=== PATIENT | female | born 1995 | race Caucasian/White ===

== ENCOUNTER 2020-03-12 09:36 | Emergency (ER) | payer OTHER ==
[2020-03-12 09:46] VITALS: TEMP 98
[2020-03-12] MEDS ORDERED: CYCLOBENZAPRINE 10MG STARTER 3 TAB BTL PO STA (10:05)
[2020-03-12] MEDS ORDERED: KETOROLAC 60 MG/2 ML VIAL IM STA (10:05)
--- NOTE | 2020-03-12 10:06 | ED ---
ENT HPI - General Source: patient Mode of arrival: ambulatory Limitations: no limitations <Allyson Alcazar - Last Filed: 03/12/20 10:41> <Karina Garcia - Last Filed: 03/13/20 15:53> - General Chief complaint: ENT Stated complaint: Ear pain, lower back pain Time Seen by Provider: 03/12/20 09:49 - History of Present Illness Initial comments: 24-year-old male presented for chief complaint of right ear pain, and low back pain (separate complaints). Patient states that she has had a sharp pain in her ear for the past week she states has been worsening denies any fever cough congestion or other respiratory upper respiratory symptoms. Patient denies any ringing in the ear tinnitus dizziness or hearing loss. Patient denies any swelling of the external ear. Patient denies diabetes. 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 She states that her low back pain. Patient states band like across the lower back no radiation. No direct trauma or falls. Patient denies loss of bowel/bladder control she denies any loss of sensation or weakness of the LE. patient denies fevers, IVDU. Denies urinary symptoms or hematuria. Remaining ROS (-). (Allyson Alcazar) - Related Data Previous Rx's Medication Instructions Recorded Amoxicillin 875 mg PO Q12HR 7 Days #14 tab 03/12/20 Allergies Allergy/AdvReac Type Severity Reaction Status Date / Time No Known Allergies Allergy Verified 03/12/20 09:43 Review of Systems ROS Other: All systems not noted in ROS Statement are negative. <Allyson Alcazar - Last Filed: 03/12/20 10:41> ROS Other: All systems not noted in ROS Statement are negative. <Karina Garcia - Last Filed: 03/13/20 15:53> ROS Statement: Those systems with pertinent positive or pertinent negative responses have been documented in the HPI. Past Medical History Past Medical History: No Reported History History of Any Multi-Drug Resistant Organisms: None Reported Past Surgical History: No Surgical Hx Reported Past Psychological History: No Psychological Hx Reported Smoking Status: Current every day smoker Past Alcohol Use History: Occasional Past Drug Use History: Marijuana <Allyson Alcazar - Last Filed: 03/12/20 10:41> General Exam Limitations: no limitations <Allyson Alcazar - Last Filed: 03/12/20 10:41> - General Exam Comments Initial Comments: General: The patient is awake and alert, in no distress, and does not appear acutely ill. Eye: Pupils are equal, round and reactive to light, extra-ocular movements are intact. No nystagmus. There is normal conjunctiva bilaterally. No signs of icterus. Ears, nose, mouth and throat: There are moist mucous membranes and no oral lesions. Right TM red, left TM WNL. b/l is not bulging. No EAC changes b/l. NO pain to palpation of the mastoid. Neck: The neck is supple, there is no tenderness or JVD. Cardiovascular: There is a regular rate and rhythm. No murmur, rub or gallop is appreciated. Respiratory: Lungs are clear to auscultation, respirations are non-labored, breath sounds are equal. No wheezes, stridor, rales, or rhonchi. Musculoskeletal: Normal inspection of back, pain to palpation of the lumbar area diffuse band like. Normal ROM, no tenderness of the LE b/l. Strength 5/5 of the LE b/l. Sensation intact of the LE b/l including the saddle region. Pulses equal bilaterally 2+. Neurological: A&O x 3. CN II-XII intact grossly, There are no obvious motor or sensory deficits. Coordination appears grossly intact. Speech is normal. Skin: Skin is warm and dry and no rashes or lesions are noted. Psychiatric: Cooperative, appropriate mood & affect, normal judgment. (Allyson Alcazar) Course Vital Signs 03/12/20 03/12/20 09:43 10:26 Temperature 98.0 F Pulse Rate 95 80 Respiratory 18 16 Rate Blood Pressure 120/75 141/76 O2 Sat by Pulse 100 99 Oximetry Medical Decision Making <Allyson Alcazar - Last Filed: 03/12/20 10:41> <Karina Garcia - Last Filed: 03/13/20 15:53> - Medical Decision Making 24-year-old male presented for multiple complaints on exam there is evidence of right-sided otitis media will treat with amoxicillin denies ALLERGIES or . Low back patient states she has done heavy lifting more so bandlike rather than midline on exam. Patient has no radiation of pain down legs. Patient is neurovascularly intact. No history concerning for what acquire patient is ambulating without difficulty. Patietn at this time I feel is stable for discharge wt PCP f/u. Discussed symptomatic treatment of low back pain including rest. Patient is agreeable to care plan and discharge at this time. Return parameters discussed. (Allyson Alcazar) I was available for consultation in the emergency department. The history and physical exam were done by the midlevel provider. I was consulted for this patients care. I reviewed the case with the midlevel provider and based on their presentation of the patient, I agree with the assessment, medical decision making and plan of care as documented. Chart was dictated using [employer] dictation software. Attempts were made to correct any dictation errors however some typographical errors may persist. Patient was seen during a national state of emergency due to the Covid-19 pandemic. (Karina Garcia) Disposition Is patient prescribed a controlled substance at d/c from ED?: No Time of Disposition: 10:47 <Allyson Alcazar - Last Filed: 03/12/20 10:41> <Karina Garcia - Last Filed: 03/13/20 15:53> Clinical Impression: Otitis media, Right ear pain, Low back pain, Low back strain Disposition: HOME SELF-CARE Condition: Good Instructions (If sedation given, give patient instructions): Ear Infection (ED), Low Back Strain (ED) Additional Instructions: Please use medication as discussed. Please follow-up with family doctor in the next 2 days.. Please return to emergency room if the symptoms increase or worsen or for any other concerns. Prescriptions: Amoxicillin 875 mg PO Q12HR 7 Days #14 tab Referrals: None,Stated [Primary Care Provider] - 1-2 days
[2020-03-12] MEDS ORDERED: LIDOCAINE 5% PATCH TOPICAL SCH (10:15)
[2020-03-12 10:28] VITALS: BP 141/76; PULSE 80; RESP 16
== END 2020-03-12 10:25 | disposition home or self-care (01) ==
LOC: EC 09:36
DX: S39.012A Strain of muscle, fascia and tendon of lower back, initial encounter (principal); H66.91 Otitis media, unspecified, right ear; F17.200 Nicotine dependence, unspecified, uncomplicated; X58.XXXA Exposure to other specified factors, initial encounter
CPT/HCPCS: 99283; 96372; J1885